=== PATIENT | male | born 1970 | race Caucasian/White ===

== ENCOUNTER 2019-01-29 07:46 | Outpatient (CLI) | payer OTHER ==
[~2019-01-29 07:46] MED LIST: PEPTO-BISM262 MG/15 PO; PROTONIX20 MG PO; [UNRECOGNIZED DRUG - OTHER] PO
== END 2019-01-29 13:27 | disposition home or self-care (01) ==
LOC: TOM 07:46
DX: R19.03 Right lower quadrant abdominal swelling, mass and lump (principal); R19.04 Left lower quadrant abdominal swelling, mass and lump

== ENCOUNTER 2019-05-16 10:21 | Emergency (ER) | payer OTHER ==
[~2019-05-16] VITALS: Ht 175.3 cm; Wt 79.8 kg
[~2019-05-16 10:21] MED LIST changes: -COZAAR50 MG; -TRUVADA 100 MG1 EACH
[2019-05-16] MEDS ORDERED: COZAAR50 MG (11:01)
[2019-05-16] MEDS ORDERED: TRUVADA 100 MG1 EACH (11:02)
== END 2019-05-16 12:23 | disposition home or self-care (01) ==
LOC: ER 10:21
DX: S29.011A Strain of muscle and tendon of front wall of thorax, initial encounter (principal); V49.9XXA Car occupant (driver) (passenger) injured in unspecified traffic accident, initial encounter; Y93.89 Activity, other specified; Y92.488 Other paved roadways as the place of occurrence of the external cause; Y99.8 Other external cause status

== ENCOUNTER → 2019-05-16 | Emergency (ER) | payer OTHER ==
[~2019-05-16] MED LIST changes: +COZAAR50 MG; +TRUVADA 100 MG1 EACH
== END | disposition left against medical advice (07) ==
LOC: ER 03:57
DX: Z53.20 Procedure and treatment not carried out because of patient's decision for unspecified reasons (principal)